=== PATIENT | female | born 1950 | race Caucasian/White ===

== ENCOUNTER 2024-11-22 04:11 | Emergency (ER) | payer MEDICARE ==
[~2024-11-22] VITALS: Ht 162.6 cm; Wt 73.4 kg
[~2024-11-22 04:11] MED LIST: B COMPLEX-FOLI1 EACH PO; LEVOTHYROXINE100 MCG PO; OMEPRAZOLE20 MG PO; VITAMIN D32000 UNI1 PO; ZESTRIL5 MG PO
[2024-11-22 04:29] LABS: BASOPHILS 0.7 % (0.1-1.2); EOSINOPHILS 3.3 % (0.7-5.8); LYMPHOCYTES 30.9 % (19.3-51.7); MCH 29.2 PG (25.6-32.2); MCHC 33.8 g/dL (32.2-35.5); MCV 86.4 fL (79.4-94.8); MONOCYTES 8.7 % (4.7-12.5); NEUTROPHILS 56.1 % (34.0-71.1); RBC 4.56 M/uL (3.93-5.22)
[2024-11-22] MEDS ORDERED: KETOROLAC TROMETHAMINE 15 MG/ML VIAL IV ONE (04:30)
[2024-11-22] MEDS ORDERED: MORPHINE SULFATE 4 MG/ML VIAL IV ONE (04:30)
[2024-11-22] MEDS ORDERED: SODIUM CHLORIDE 0.9% 500 ML IV PRN (04:30)
[2024-11-22 04:43] LABS: ALT (SGPT) 53.0 U/L (14-59); AST (SGOT) 41.0 U/L (15-37); GLOMERULAR FILTRATION RATE,EST 70.0 mL/min (>60); PROTEIN, TOTAL 7.2 g/dL (6.4-8.2); UREA NITROGEN 13.0 mg/dL (7-18)
[2024-11-22 05:05] LABS: INFLUENZA B NAA NEGATIVE (NEGATIVE); RESPIRATORY SYNCYTIAL VIR NAA NEGATIVE (NEGATIVE)
[2024-11-22] MEDS ORDERED: HYDROCODON-ACE1 EA10 PO (05:25)
[2024-11-22] MEDS ORDERED: HYDROCODONE BIT/ACETAMINOPHEN 5/325 MG 1 TAB HOME.PACK PO ONE (05:30)
[2024-11-22] MEDS ORDERED: methylPREDNISolone 4 MG HOME.PACK PO ONE (05:30)
[2024-11-22 06:11] VITALS: BP 144/71
== END 2024-11-22 06:13 | disposition home or self-care (01) ==
LOC: ED 04:11
PROVIDERS: Family Medicine
DX: S13.4XXA Sprain of ligaments of cervical spine, initial encounter (principal); X58.XXXA Exposure to other specified factors, initial encounter; I10 Essential (primary) hypertension; E03.9 Hypothyroidism, unspecified; Z79.890 Hormone replacement therapy; Z79.899 Other long term (current) drug therapy
CPT/HCPCS: 36415; 70450; 72125; 80053; 85025; 87502; 96374; 96375; 99284-25; A9270; J1885; J2270; J2405; J7040; U0002